=== PATIENT | female | born 1985 | race Caucasian/White ===

== ENCOUNTER 2018-01-07 20:23 | Emergency (ER) | payer OTHER ==
[~2018-01-07] VITALS: Ht 167.6 cm; Wt 91.6 kg
[~2018-01-07 20:23] MED LIST: PREN-385 PO
[2018-01-07 20:24] VITALS: BP 117/72
--- NOTE | 2018-01-07 20:28 | NUR ---
PT TAKEN TO BED 7
--- NOTE | 2018-01-07 20:31 | NUR ---
Dr. Landeros evaluating patient at bedside.
--- NOTE | 2018-01-07 20:45 | NUR ---
32/F CAME IN ED, C/O SUDDEN ONSET MODERATE VAGINAL BLEEDING, X1 HR, PT REPORTS THAT IT IS LESS THAN 1 PAD PER HOUR. PT REPORTS BEING 10 WEEKS , A1. PT DENIES FEVER, N/V/D, DYSURIA. DENIES ANY VAGINAL PAIN, DISCHARGE OR ITCHING. AOX4, AMBULATORY, RR EVEN AND UNLABORED. HX HYPOTHYROID RX LEVOTHYROXINE
--- NOTE | 2018-01-07 20:45 | NUR ---
PT UNABLE TO COLLECT URINE SAMPLE AT THIS TIME, PT GIVEN WATER
--- NOTE | 2018-01-07 20:54 | NUR ---
US AT BEDSIDE
[2018-01-07 21:15] LABS: BASOPHILS % (AUTO) 0.3 % (0.0-2.0); EOSINOPHILS # (AUTO) 0.2 K/uL (0-0.4); EOSINOPHILS % (AUTO) 2.4 % (0.0-4.0); HEMATOCRIT 35.1 % (36-48); HEMOGLOBIN 11.7 g/dL (12.0-16.0); LYMPHOCYTES # (AUTO) 2.4 K/uL (2.5-16.5); LYMPHOCYTES % (AUTO) 23.5 % (20.5-51.1); MEAN CORPUSCULAR HEMOGLOBIN 28 pg (27-31); MEAN CORPUSCULAR HGB CONC 33 g/dL (33-37); MEAN CORPUSCULAR VOLUME 84.7 fL (80-94); MONOCYTES # (AUTO) 0.7 K/uL (0.8-1.0); MONOCYTES % (AUTO) 6.4 % (1.7-9.3); NEUTROPHILS # (AUTO) 6.9 K/uL (1.8-7.7); NEUTROPHILS % (AUTO) 67.4 % (42.2-75.2); PLATELET COUNT (AUTO) 211 K/uL (140-450); RED BLOOD CELL COUNT(AUTO) 4.15 MIL/uL (4.20-5.40); RED CELL DISTRIBUTION WIDTH 13.6 % (11.6-13.7); WHITE BLOOD COUNT (AUTO) 10.3 K/uL (4.8-10.8)
[2018-01-07 21:16] LABS: APPEARANCE,URINE SLIGHTLY BLOODY (CLEAR); COLOR,URINE YELLOW (YELLOW)
[2018-01-07 21:17] LABS: BILIRUBIN,URINE NEGATIVE (NEGATIVE); BLOOD, URINE 4+ (NEGATIVE); LEUKOCYTE ESTERASE ,URINE TRACE (NEGATIVE); NITRITE, URINE NEGATIVE (NEGATIVE); UGLUCOSE NEGATIVE (NEGATIVE)
[2018-01-07 21:20] LABS: RBC,URINE 50-80 /HPF (0-5); WBC,URINE 0-5 (RARE) /HPF (0-5)
--- NOTE | 2018-01-07 22:05 | NUR ---
Patient discharged with v/s stable. Written and verbal after care instructions given and explained. Patient alert, oriented and verbalized understanding of instructions. Ambulatory with steady gait. All questions addressed prior to discharge. ID band removed. Patient advised to follow up with PMD.NONE Rx given. Patient educated on indication of medication including possible reaction and side effects. Opportunity to ask questions provided and answered.
[2018-01-07 22:10] VITALS: BP 99/44
== END 2018-01-07 22:05 | disposition home or self-care (01) ==
LOC: MED 20:23
DX: O20.0 Threatened abortion (principal); Z3A.10 10 weeks gestation of pregnancy
CPT/HCPCS: 36415; 76815; 81001; 81025; 84702; 85025; 86900; 86901; 99285; Q0092

== ENCOUNTER 2018-05-19 20:35 | Observation (INO) | payer OTHER ==
[~2018-05-19] VITALS: Ht 167.6 cm; Wt 102.1 kg
[~2018-05-19 20:35] MED LIST changes: +SYN.1 PO
[2018-05-19 21:42] VITALS: BP 112/56
== END 2018-05-19 23:05 | disposition home or self-care (01) ==
LOC: MLD 20:35
PROVIDERS: ADMIT Obstetrics & Gynecology; ATTEND Obstetrics & Gynecology
DX: O36.8130 Decreased fetal movements, third trimester, not applicable or unspecified (principal); O26.893 Other specified pregnancy related conditions, third trimester; R10.9 Unspecified abdominal pain; Z3A.29 29 weeks gestation of pregnancy
CPT/HCPCS: 81000; G0378

== ENCOUNTER 2018-07-13 15:17 | Emergency (ER) | payer OTHER ==
[~2018-07-13] VITALS: Ht 165.1 cm; Wt 101.6 kg
[2018-07-13 15:20] VITALS: BP 117/74
--- NOTE | 2018-07-13 15:47 | NUR ---
C/O REDNESS/DRAINAGE TO INCISION FROM TUBAL LIGATION X1 WEEK AGO. PT DENIES N/V/D/FEVER/PAIN. REDNESS/WARMTH NOTED AROUND INCISION, SCANT DRAINAGE COMING FROM INCISION.
--- NOTE | 2018-07-13 15:55 | NUR ---
DR. ANDREWS EVALUATING PT AT BEDSIDE
[2018-07-13] MEDS ORDERED: BACITRACIN OINT 500 UNITS/GM PKT TP ONE (16:10)
[2018-07-13 16:17] VITALS: BP 120/75
== END 2018-07-13 16:17 | disposition home or self-care (01) ==
LOC: MED 15:17
DX: L76.34 Postprocedural seroma of skin and subcutaneous tissue following other procedure (principal); E07.9 Disorder of thyroid, unspecified; Z98.51 Tubal ligation status; Z79.899 Other long term (current) drug therapy; Y83.8 Other surgical procedures as the cause of abnormal reaction of the patient, or of later complication, without mention of misadventure at the time of the procedure
CPT/HCPCS: 99283

== ENCOUNTER 2019-09-12 06:28 | Emergency (ER) | payer OTHER ==
[~2019-09-12] VITALS: Ht 170.2 cm; Wt 93.0 kg
[2019-09-12 06:45] VITALS: BP 111/75
--- NOTE | 2019-09-12 06:55 | NUR ---
AUGUSTUS MOORE IN TENT TO EVALUATE PT
[2019-09-12 07:00] VITALS: BP 111/75
--- NOTE | 2019-09-12 07:00 | NUR ---
Patient discharged with v/s stable. Written and verbal after care instructions given and explained. Patient verbalized understanding. Ambulatory with to car. All questions addressed prior to discharge. Advised to follow up with PMD.
--- NOTE | 2019-09-12 07:00 | NUR ---
COVID SWAB COLLECTED AND SENT TO LAB.
--- NOTE | 2019-09-12 07:00 | NUR ---
NO NURSING INTERVENTION NEEDED. PT SEEN, TX, AND D/C BY AUGUSTUS.
== END 2019-09-12 07:00 | disposition home or self-care (01) ==
LOC: MED 06:28
DX: U07.1 COVID-19 (principal); B34.9 Viral infection, unspecified; E07.9 Disorder of thyroid, unspecified; Z79.899 Other long term (current) drug therapy
CPT/HCPCS: 99283; U0003

== ENCOUNTER 2019-09-14 09:32 | Emergency (ER) | payer OTHER ==
[~2019-09-14] VITALS: Ht 167.6 cm; Wt 93.4 kg
[2019-09-14 09:35] VITALS: BP 135/87
--- NOTE | 2019-09-14 09:41 | NUR ---
Pt given urine cup and ambulated to bed 04
--- NOTE | 2019-09-14 09:45 | NUR ---
PT C/O MID TO UPPER BACK PAIN X 3 DAYS 10/04, DENIES TRAUMA/INJURY , DENIES N/V , PT AOX4 , AFIBRILE , AMBULATORY , NO LIMITATION OF ROM , NO BACK TENDERNESS NOTED. MEDHX: hypothyroid
[2019-09-14] MEDS ORDERED: KETOROLAC 60 MG/2 ML VIAL IM ONE (09:50)
--- NOTE | 2019-09-14 10:05 | NUR ---
DR MORIN AT BEDSIDE EVALUATING PT.
[2019-09-14 10:15] VITALS: BP 135/87
--- NOTE | 2019-09-14 10:16 | NUR ---
Patient discharged with v/s stable. Written and verbal after care instructions given and explained regarding back pain . Patient alert, oriented and verbalized understanding of instructions. Ambulatory with steady gait. All questions addressed prior to discharge. ID band removed. Patient advised to follow up with PMD. Rx of motrin and norco given. Patient educated on indication of medication including possible reaction and side effects. Opportunity to ask questions provided and answered.
== END 2019-09-14 10:16 | disposition home or self-care (01) ==
LOC: MED 09:32
DX: M54.6 Pain in thoracic spine (principal); E07.9 Disorder of thyroid, unspecified; Z79.899 Other long term (current) drug therapy
CPT/HCPCS: 81002; 81025; 96372; 99283; J1885

== ENCOUNTER 2020-01-27 08:52 | Emergency (ER) | payer OTHER ==
[~2020-01-27] VITALS: Ht 170.2 cm; Wt 94.3 kg
[2020-01-27 09:01] VITALS: BP 118/70
--- NOTE | 2020-01-27 09:05 | NUR ---
PT TAKEN TO BED 12.
--- NOTE | 2020-01-27 09:10 | NUR ---
34/F presents to ED with complaints of right sided neck pain, shoulder pain x1 week. Denies any injury or trauma. Pt has pain with turning her head from side to side. Denies any fever or chills. Pt c/o 9/10 pain, aching, radiating down right arm. VSS.
[2020-01-27] MEDS ORDERED: LIDOCAINE MPF 1% 10 MG/ML VIAL INJ ONE (09:25)
[2020-01-27 10:29] VITALS: BP 118/70
--- NOTE | 2020-01-27 10:29 | NUR ---
Patient discharged with v/s stable. Written and verbal after care instructions given and explained. Patient alert, oriented and verbalized understanding of instructions. Ambulatory with steady gait. All questions addressed prior to discharge. ID band removed. Patient advised to follow up with PMD. Rx of [place] 5mg-325mg given. Patient educated on indication of medication including possible reaction and side effects. Patient instructed not to drive while taking prescribed medication d/t drowsiness. Opportunity to ask questions provided and answered.
== END 2020-01-27 10:29 | disposition home or self-care (01) ==
LOC: MED 08:52
DX: M54.2 Cervicalgia (principal); M62.830 Muscle spasm of back; E07.9 Disorder of thyroid, unspecified; Z79.899 Other long term (current) drug therapy
CPT/HCPCS: 20552; 99284; J2001

== ENCOUNTER 2021-05-11 15:17 | Emergency (ER) | payer OTHER ==
[~2021-05-11] VITALS: Ht 170.2 cm; Wt 94.3 kg
[2021-05-11 15:25] VITALS: BP 142/88
--- NOTE | 2021-05-11 17:00 | NUR ---
ATTEMPTED TO CALL PT BACK TO ROOM. NO ANSWER IN LOBBY/OUTSIDE
--- NOTE | 2021-05-11 17:30 | NUR ---
SUZETTE PEREZ ATTEMPTED TO CALL PT BACK, NO ANSWER
--- NOTE | 2021-05-11 17:44 | NUR ---
ATTEMPTED TO CALL PT BACK TO ROOM FOR SECOND TIME. NO ANSWER IN LOBBY/OUTSIDE
--- NOTE | 2021-05-11 17:45 | NUR ---
PATIENT LEFT WITHOUT BEING SEEN BY DR. MORIN/SUZETTE PEREZ. NO FURTHER CARE PROVIDED FOR PATIENT.
== END 2021-05-11 17:45 | disposition left against medical advice (07) ==
LOC: MED 15:17
DX: R51.9 Headache, unspecified (principal); R42 Dizziness and giddiness; R11.0 Nausea; Z53.21 Procedure and treatment not carried out due to patient leaving prior to being seen by health care provider; Z86.39 Personal history of other endocrine, nutritional and metabolic disease

== ENCOUNTER 2022-01-27 17:45 | Emergency (ER) | payer OTHER ==
[~2022-01-27] VITALS: Ht 170.2 cm; Wt 95.7 kg
[2022-01-27 17:50] VITALS: BP 118/68
[2022-01-27] MEDS ORDERED: ONDANSETRON 4 MG ODT PO ONE (18:00)
[2022-01-27] MEDS ORDERED: KETOROLAC 30 MG/ML VIAL IM ONE (18:00)
[2022-01-27 18:28] LABS: BASOPHILS # (AUTO) 0.1 K/uL (0.00-0.22); BASOPHILS % (AUTO) 0.3 % (0.0-2.0); EOSINOPHILS # (AUTO) 0.1 K/uL (0-0.4); EOSINOPHILS % (AUTO) 0.6 % (0.0-4.0); HEMATOCRIT 43.6 % (36-48); HEMOGLOBIN 14.8 g/dL (12.0-16.0); LYMPHOCYTES % (AUTO) 5.4 % (20.5-51.1); MEAN CORPUSCULAR HEMOGLOBIN 28 pg (27-31); MEAN CORPUSCULAR HGB CONC 34 g/dL (33-37); MEAN CORPUSCULAR VOLUME 82.5 fL (80-94); MONOCYTES # (AUTO) 0.8 K/uL (0.8-1.0); MONOCYTES % (AUTO) 4.2 % (1.7-9.3); NEUTROPHILS # (AUTO) 16.3 K/uL (1.8-7.7); NEUTROPHILS % (AUTO) 89.5 % (42.2-75.2); PLATELET COUNT (AUTO) 290 K/uL (140-450); RED BLOOD CELL COUNT(AUTO) 5.29 MIL/uL (4.20-5.40); RED CELL DISTRIBUTION WIDTH 12.9 % (11.6-13.7); WHITE BLOOD COUNT (AUTO) 18.2 K/uL (4.8-10.8)
[2022-01-27 18:46] LABS: ALBUMIN 4.3 g/dL (3.4-5.0); ANION GAP 11.8 (8-16); CARBON DIOXIDE 28.1 mmol/L (21-32); CREATININE 0.8 mg/dL (0.6-1.3); POTASSIUM 3.9 mmol/L (3.5-5.1); TOTAL BILIRUBIN 1.4 mg/dL (0.0-1.0)
[2022-01-27 19:09] LABS: APPEARANCE,URINE SL CLOUDY (CLEAR); BILIRUBIN,URINE 2+ (NEGATIVE); BLOOD, URINE NEGATIVE (NEGATIVE); COLOR,URINE YELLOW (YELLOW); LEUKOCYTE ESTERASE ,URINE NEGATIVE (NEGATIVE); NITRITE, URINE POSITIVE (NEGATIVE); PH,URINE 5.5 (5.0-9.0); UGLUCOSE NEGATIVE (NEGATIVE)
--- NOTE | 2022-01-27 20:00 | NUR ---
ALL RESULTS BACK AND NOTED BY ERMD AND FOR D/C
[2022-01-27] MEDS ORDERED: NITR100C7 PO (20:20)
[2022-01-27] MEDS ORDERED: ONDA-188 PO (20:20)
[2022-01-27 20:25] VITALS: BP 120/79
--- NOTE | 2022-01-27 20:25 | NUR ---
Patient discharged with v/s stable. Written and verbal after care instructions given and explained. Patient alert, oriented and verbalized understanding of instructions. Ambulatory with steady gait. All questions addressed prior to discharge. ID band removed. Patient advised to follow up with PMD. Rx of MACROBID, ZOFRAN ODT, given. Patient educated on indication of medication including possible reaction and side effects. Opportunity to ask questions provided and answered.
[2022-01-27 20:33] LABS: RBC,URINE 0-5 /HPF (0-5); WBC,URINE 0-5 /HPF (0-5)
[2022-01-27 20:34] LABS: TRICHOMONAS,URINE None Seen /HPF (None Seen); YEAST,URINE None Seen /HPF (None Seen)
== END 2022-01-27 20:25 | disposition home or self-care (01) ==
LOC: MED 17:45
DX: A08.4 Viral intestinal infection, unspecified (principal); Z20.822 Contact with and (suspected) exposure to COVID-19; N39.0 Urinary tract infection, site not specified; Z79.899 Other long term (current) drug therapy
CPT/HCPCS: 36415; 80053; 81001; 81025; 83690; 85025; 87086; 87426; 87804; 96372; 99283; J1885; Q0162